=== PATIENT | male | born 1970 | race Caucasian/White ===

== ENCOUNTER → 2025-07-27 12:58 | Outpatient (REF) | payer BC, SELFPAY | LOC: RAD 12:58 | PROVIDERS: ATTENDING PHYSICIAN Family Medicine | DX: R10.84 Generalized abdominal pain (principal); K59.00 Constipation, unspecified; E66.813 Obesity, class 3; I10 Essential (primary) hypertension | CPT/HCPCS: 74177; Q9967 ==